=== PATIENT | female | born 1960 | race American Indian/Alaskan Native ===

== ENCOUNTER 2018-10-04 08:48 | Observation (INO) | payer BC ==
[2018-10-03 11:37] LABS: Basophils % (Auto) 1.1 % (0.0-1.8); Eosinophils # (Auto) 0.1 K/mm3 (0.0-0.4); Eosinophils % (Auto) 1.4 % (0.0-4.3); Lymphocytes # (Auto) 0.9 K/mm3 (1.2-5.4); Lymphocytes % (Auto) 22.5 % (13.4-35.0); Mean Corpuscular HGB Conc 31 % (30-34); Monocytes # (Auto) 0.3 K/mm3 (0.0-0.8); Monocytes % (Auto) 7.6 % (0.0-7.3); Platelet Count 305 K/mm3 (140-440); Red Cell Distribution Width 15.9 % (13.2-15.2)
[2018-10-03 11:41] LABS: Hematocrit 36.9 % (30.3-42.9); Hemoglobin 11.3 gm/dl (10.1-14.3); Mean Corpuscular Volume 70 fl (79-97)
[2018-10-03 11:58] LABS: BUN/Creatinine Ratio 16; Blood Urea Nitrogen 13 mg/dL (7-17); Calcium 9.4 mg/dL (8.4-10.2); Hemolysis Index 7
--- NOTE | 2018-10-03 13:59 | History and Physical Report ---
History of Present Illness Date of examination: 10/04/18 Date of admission: 10/04/2018 Chief complaint: dysfunctional uterine bleeding History of present illness: 58y/o G0 with dysfunctional uterine bleeding. Pelvic ultrasound demonstrated findings of a submucosal myoma. Pathology results from the endometrial biopsy found evidence of an endocervical polyp. The patient has had vaginal bleeding that has been unresponsive to medical management. Past History Past Medical History: asthma, hypertension, other (morbid obesity; bronchitis) Past Surgical History: other (foot surgery) Social history: - Obstetrical History : 0 Para: 0 Medications and Allergies Allergies Allergy/AdvReac Type Severity Reaction Status Date / Time aspirin Allergy wheezing Verified 09/21/18 12:12 iodine Allergy Sampson skin Verified 09/21/18 12:12 lemon Allergy Hives Verified 09/21/18 12:12 shellfish derived Allergy Anaphylaxis Verified 09/21/18 12:12 Home Medications Medication Instructions Recorded Confirmed Last Taken Type AtorvaSTATin [Lipitor] 20 mg PO QHS 09/21/18 09/21/18 Unknown History Losartan/Hydrochlorothiazide 0.5 tab PO DAILY 09/21/18 09/21/18 Unknown History [Losartan-Hctz 50-12.5 mg Tab] Review of Systems All systems: negative Genitourinary: vaginal bleeding - Vital Signs Vital signs: Vital Signs Temp Pulse Resp BP 99.1 F 72 20 128/80 10/03/18 11:10 10/03/18 11:10 10/03/18 11:10 10/03/18 11:10 Temp Pulse Resp BP Pulse Ox 99.1 F 72 20 128/80 10/03/18 11:10 10/03/18 11:10 10/03/18 11:10 10/03/18 11:10 - Physical Exam Breasts: Positive: deferred Cardiovascular: Regular rate Lungs: Positive: Clear to auscultation Abdomen: Positive: other (obese) Results Result Diagrams: 10/03/18 11:20 10/03/18 11:20 Abnormal lab results 10/03/18 Range/Units 11:20 WBC 3.9 L (4.5-11.0) K/mm3 RBC 5.30 H (3.65-5.03) M/mm3 MCV 70 L (79-97) fl MCH 21 L (28-32) pg RDW 15.9 H (13.2-15.2) % Stephenson % (Auto) 7.6 H (0.0-7.3) % Lymph # 0.9 L (1.2-5.4) K/mm3 All other labs normal. Assessment and Plan - Patient Problems (1) Dysfunctional uterine bleeding Status: Acute Plan to address problem: scheduled for a robotic hysterectomy and BSO (2) Morbid obesity Status: Acute
[~2018-10-04 08:48] MED LIST: ANCEF/STERILE WATER 2 GM/20 ML 2 GM/20 ML SYRINGE IV SCH
[2018-10-04] MEDS ORDERED: LACTATED RINGERS 1,000 ML ONE (09:16)
[2018-10-04] MEDS ORDERED: SUBLIMAZE ONE ×2 (09:16→12:04)
[2018-10-04] MEDS ORDERED: DECADRON ONE ×2 (09:16→11:39)
[2018-10-04] MEDS ORDERED: VERSED ONE (09:17)
[2018-10-04] MEDS ORDERED: NEURONTIN ONE (09:17)
[2018-10-04] MEDS ORDERED: ZEMURON IV ONE (10:40)
[2018-10-04] MEDS ORDERED: XYLOCAINE MPF 2% ONE (10:40)
[2018-10-04] MEDS ORDERED: DIPRIVAN 10 MG/ML IV ONE (10:41)
[2018-10-04] MEDS ORDERED: DILAUDID ONE ×2 (10:41→14:15)
[2018-10-04] MEDS ORDERED: GELFOAM POWDER 1GM MM ONE ×2 (10:50→12:30)
[2018-10-04] MEDS ORDERED: THROMBIN (BOVINE) TP ONE ×2 (10:50→12:30)
[2018-10-04] MEDS ORDERED: NEOSPORIN GU IR ONE (10:50)
--- NOTE | 2018-10-04 10:54 | Anesthesia Day of Surgery ---
Anesthesia Day of Surgery - Day of Surgery Patient Examined: Yes Patient H&P Reviewed: Yes Patient is NPO: Yes
--- NOTE | 2018-10-04 10:55 | Anesthesia Consultation ---
Anesthesia Consult and Med Hx Date of service: 10/04/18 - Airway Anesthetic Teeth Evaluation: Poor ROM Head & Neck: Adequate Mental/Hyoid Distance: Adequate Mallampati Class: Class II Intubation Access Assessment: Probably Good - Pulmonary Exam CTA: Yes - Pre-Operative Health Status ASA Pre-Surgery Classification: ASA3 Proposed Anesthetic Plan: General - Pulmonary Hx Asthma: Yes (Not treated for 10 yrs) Hx Sleep Apnea: Yes (No CPAP) - Cardiovascular System Hx Hypertension: Yes (Treated x 4 yrs) Hx Coronary Artery Disease: Yes (high cholesterol) Hx Heart Murmur: Yes - Central Nervous System Hx Back Pain: Yes Hx Psychiatric Problems: No - Gastrointestinal Hx Gastroesophageal Reflux Disease: No - Endocrine Hx End Stage Renal Disease: No Hx Liver Disease: No - Hematic Hx Anemia: Yes - Other Systems Hx Alcohol Use: Yes (Occas) Hx Cancer: No
[2018-10-04] MEDS ORDERED: ANCEF/STERILE WATER 2 GM/20 ML 2 GM/20 ML SYRINGE IV SCH (11:00)
[2018-10-04] MEDS ORDERED: MARCAINE 0.5% INFILTRATI ONE ×2 (11:21→12:32)
[2018-10-04] MEDS ORDERED: ZOFRAN ONE (11:39)
[2018-10-04] MEDS ORDERED: NACL 0.9% IR ONE ×2 (12:30)
[2018-10-04] MEDS ORDERED: ROBINUL ONE (12:57)
[2018-10-04] MEDS ORDERED: BLOXIVERZ ONE (12:57)
[2018-10-04] MEDS ORDERED: NARCAN 0.4 MG/1 ML IV PRN (12:59)
--- NOTE | 2018-10-04 12:59 | Operative Report ---
Operative Report Operative Report: Date of surgery: 10/04/2018 Preoperative diagnoses: Symptomatic uterine fibroids; dysfunctional uterine bleeding; morbid obesity Postoperative diagnoses: Same as above Procedure: Robotic hysterectomy and bilateral salpingo-oophorectomy Surgeon: Nova Morejon M.D. Quill Stripper: Savanna Cuevas Anesthesia: Gen. endotracheal anesthesia Estimated blood loss: 50 mL Pathology: Cervix, uterus, bilateral tubes and ovaries Indication: 58-year-old G0 with a history of symptomatic uterine fibroids and dysfunctional uterine bleeding. The patient had failed medical management and elected to undergo definitive surgical management. Procedure: The patient was taken to the operating room and given general endotracheal anesthesia without complication. She is prepped and draped in a normal sterile fashion. A bivalve speculum was placed in the patient's vagina and a single- tooth tenaculum placed on the anterior lip of the cervix. The uterus was sounded with the uterine sound. A Collective IP uterine manipulator was placed in the bivalve speculum was then removed. Attention was then turned to the patient's abdomen where a 12 millimeter supra umbilical skin incision was then made. A Veress needle was placed and peritoneal entry was verified water-filled syringe. Insufflation of the peritoneal cavity was performed with CO2 gas. The 12 mm trocar was then placed under direct visualization. An additional 8 mm trocar was placed on the patient's left and right lateral side just opposite of the supraumbilical trocar. An additional 5 mm right lateral trocar was then placed as the accessory port. The Basilio Nicole device was used to close the fascia of the 12 mm incision. The patient was then placed in steep Trendelenburg. The da Jay robot was then engaged. General survey of the abdomen and pelvis revealed a mildly enlarged fibroid uterus. The ovaries and tubes were normal in appearance. A fenestrated forcep was placed in arm 2 and a vessel sealer was placed in arm 1. The surgeon then transferred to the surgical console. The infundibulopelvic ligament was then isolated on the right. The vessel sealer was used to coagulate the ligament which was then transected. The tube and ovary were transected from the supply. The round ligament was then coagulated and transected also. The vesicouterine peritoneum was then entered from the patient's right side. The uterine vessels were then coagulated with the vessel sealer. The vessels were then transected . Attention was then turned to the patient's left side where the infundibulopelvic ligament and mesosalpinx were again isolated coagulated and transected. The vesical peritoneum was then entered from the left and joined in the midline. Peritoneum was reflected off of the lower uterine segment. Uterine vessels were then coagulated and then transected. The blood supply to the uterus was adequately contained, a posterior colpotomy was made. The V care ring was visualized. Posterior colpotomy was created with the monopolar scissors. The incision was continued circumferentially until anterior colpotomy was made. The cervix and uterus were amputated from the vaginal cuff. The uterus was then removed along with the tubes and ovaries bilaterally through the vagina and a warm laparotomy sponge was placed and maintain the pneumoperitoneum. The vaginal cuff was then closed in a running fashion with V lock suture. Irrigation of the pelvis was performed. Gelfoam with thrombin was applied to the incision. The skin was then reapproximated with 4-0 Monocryl. The tissue was sent to pathology which included the cervix, uterus, tubes and ovaries. The patient was then successfully extubated. She was then taken to the recovery room in stable condition. All sponge laps and needle counts were correct x2.
[2018-10-04] MEDS ORDERED: TYLENOL PO PRN (13:00)
[2018-10-04] MEDS ORDERED: MORPHINE PCA 30MG/30ML IV SCH (13:00)
[2018-10-04] MEDS ORDERED: IBUPROFEN PO PRN (13:00)
[2018-10-04] MEDS ORDERED: PERCOCET 5/325 PO PRN (13:00)
[2018-10-04] MEDS ORDERED: AMBIEN PO PRN (13:00)
[2018-10-04] MEDS ORDERED: ZOFRAN ODT PO PRN (13:00)
[2018-10-04] MEDS ORDERED: DILAUDID IV PRN (13:48)
[2018-10-04] MEDS ORDERED: ZOFRAN IV PRN (13:48)
[2018-10-04] MEDS ORDERED: DEMEROL IV PRN (13:48)
[2018-10-04] MEDS: D5LR 1,000 ML IV SCH ×2 (15:30→22:51)
--- NOTE | 2018-10-04 17:46 | Anesthesia Day of Surgery ---
Anesthesia Day of Surgery - Day of Surgery Patient Examined: Yes Patient H&P Reviewed: Yes Patient is NPO: Yes
--- NOTE | 2018-10-04 17:46 | Anesthesia Consultation ---
Anesthesia Consult and Med Hx Date of service: 10/04/18 - Airway Anesthetic Teeth Evaluation: Poor ROM Head & Neck: Adequate Mental/Hyoid Distance: Adequate Mallampati Class: Class I Intubation Access Assessment: Good - Pulmonary Exam CTA: Yes - Cardiac Exam Cardiac Exam: RRR - Pre-Operative Health Status ASA Pre-Surgery Classification: ASA2 Proposed Anesthetic Plan: General - Pulmonary Hx Asthma: Yes (Not treated for 10 yrs) Hx Sleep Apnea: Yes (No CPAP) - Cardiovascular System Hx Hypertension: Yes (Treated x 4 yrs) Hx Coronary Artery Disease: Yes (high cholesterol) Hx Heart Murmur: Yes - Central Nervous System Hx Back Pain: Yes Hx Psychiatric Problems: No - Gastrointestinal Hx Gastroesophageal Reflux Disease: No - Endocrine Hx End Stage Renal Disease: No Hx Liver Disease: No - Hematic Hx Anemia: Yes - Other Systems Hx Alcohol Use: Yes (Occas) Hx Cancer: No
--- NOTE | 2018-10-04 17:47 | Post Anesthesia Evaluation ---
- Post Anesthesia Evaluation Patient Participated: Yes Airway Patent: Yes Stable Respiratory Function: Yes Nausea/Vomiting: No Temp > 96.8F: Yes Pain Manageable: Yes Adequeate Hydration: Yes Anesthesia Complications: No
[2018-10-05 06:26] LABS: Hematocrit 31.8 % (30.3-42.9); Hemoglobin 9.9 gm/dl (10.1-14.3)
[2018-10-05] MEDS: D5LR 1,000 ML IV SCH (06:28)
--- NOTE | 2018-10-05 08:38 | Progress Note ---
Assessment and Plan - Patient Problems (1) Dysfunctional uterine bleeding Current Visit: No Status: Acute Plan to address problem: patient doing well routine postop (2) Morbid obesity Current Visit: No Status: Acute Subjective - Subjective Date of service: 10/05/18 Interval history: Surgery discussed with patient. Having mild right sided pain. Has not voided yet Patient reports: appetite normal Objective - Vital Signs Latest vital signs: Vital Signs Temp Pulse Resp BP BP Pulse Ox 10/05/18 04:00 98.7 F 72 18 117/61 10/05/18 00:00 98.6 F 77 18 121/72 10/04/18 22:44 98.6 F 60 18 113/68 10/04/18 15:03 97.6 F 59 L 16 145/71 97 10/04/18 14:15 97.3 F L 57 L 12 145/74 100 10/04/18 14:00 65 12 150/75 100 10/04/18 13:45 62 13 140/80 99 10/04/18 13:30 69 13 136/80 99 10/04/18 13:25 78 15 153/79 100 10/04/18 13:20 97.4 F L 80 16 143/84 100 10/04/18 09:15 98.9 F 86 16 124/80 Intake and Output 10/04/18 10/05/18 10/05/18 22:59 06:59 14:59 Intake Total 1278.75 952.083 Output Total 120 1600 Balance 1158.75 -647.917 Intake: IV 918.75 952.083 D5lr 1,000 ml @ 125 mls/ 918.75 952.083 hr IV DIRECT STEPHANY Rx#: [id number] Oral 360 Output: Urine 120 1600 Indwelling Catheter 120 1600 Other: Total, Intake Amount 240 Total, Output Amount 120 700 Voiding Method Indwelling Catheter - Exam Abdomen: Present: normal appearance, soft - Labs Labs: Abnormal lab results 10/05/18 Range/Units 05:57 Hgb 9.9 L (10.1-14.3) gm/dl
--- NOTE | 2018-10-05 08:39 | Discharge Summary ---
Providers - Providers Date of Admission: 10/04/18 13:00 Date of discharge: 10/05/18 Attending physician: EVELINA MOONEY Primary care physician: SWAPNA TADEO Hospitalization Reason for admission: other (fibroids) Procedure: other (robotic hysterectomy and BSO) Discharge diagnosis: other (fibroids) Hospital course: Patient admitted the day of surgery for a robotic hysterectomy and BSO. See op note. Postop uncomplicated Condition at discharge: Good Disposition: DC- TO HOME OR SELFCARE - Discharge Diagnoses (1) Dysfunctional uterine bleeding Status: Acute (2) Morbid obesity Status: Acute Plan - Discharge Medications Prescriptions: Docusate Sodium [Colace] 100 mg PO BID PRN #60 capsule PRN Reason: Constipation Ibuprofen [Motrin] 800 mg PO Q8HR PRN #60 tablet PRN Reason: Pain , Severe (7-10) Oxycodone HCl/Acetaminophen [Percocet 7.5/325 mg] 1 each PO Q6HR PRN #30 tablet PRN Reason: Pain - Provider Discharge Summary Activity: no sex for 6 weeks, no heavy lifting 4 weeks, no strenuous exercise Diet: routine Instructions: routine Additional instructions: [] Smoking cessation referral if applicable(refer to patient education folder for contact #) [] Refer to [facility] Booklet Call your doctor immediately for: * Fever > 100.5 * Heavy vaginal bleeding ( >1 pad per hour) * Severe persistent headache * Shortness of breath * Reddened, hot, painful area to leg or breast * Drainage or odor from incision. * Keep incision clean and dry at all times and follow doctor's instructions regarding bathing/showering schedule followup in 4 weeks - Follow up plan
[2018-10-05 17:25] VITALS: BP 139/69
== END 2018-10-05 19:30 | disposition home or self-care (01) ==
LOC: OR 08:48 → OB 13:00
PROVIDERS: ADMIT Obstetrics & Gynecology; ATTEND Obstetrics & Gynecology
DX: D25.9 Leiomyoma of uterus, unspecified (principal); N93.8 Other specified abnormal uterine and vaginal bleeding; E66.01 Morbid (severe) obesity due to excess calories
CPT/HCPCS: 36415; 58571; 80048; 81025; 82962; 85014; 85018; 85025; 86850; 86900; 86901; 88307; 96374; A4217; A4649; G0378; J0690; J1100; J1170; J2250; J2270; J2405; J2704; J2710; J3010; J7120; J7121; S2900; 96375